=== PATIENT | female | born 1930 | race African-American/Black ===

== ENCOUNTER 2018-08-09 12:10 | Inpatient (IN) | payer MEDICARE, MEDICAID ==
[~2018-08-09] VITALS: Ht 154.9 cm; Wt 73.5 kg
[2018-08-09] MEDS ORDERED: PRAZ1CAP5 GT (12:25)
[2018-08-09] MEDS ORDERED: OMEP20TA15 GT (12:25)
[2018-08-09] MEDS ORDERED: LEVO150T8 GT (12:25)
[2018-08-09] MEDS ORDERED: LORA-249 GT (12:25)
[2018-08-09] MEDS ORDERED: ZOLP5TAB2 GT (12:25)
[2018-08-09] MEDS ORDERED: ONDANSETRON HCL 4MG/2ML INJ IV ONE (14:15)
[2018-08-09] MEDS ORDERED: SODIUM CHLORIDE 0.9% 1000ML BAG (SEPSIS BOLUS) IV ONE (14:15)
[2018-08-09] MEDS ORDERED: FAMOTIDINE 20MG/2ML VIAL IV ONE (14:45)
[2018-08-09 15:04] LABS: HEMATOCRIT. 50.9 % (36.0-48.0); HEMOGLOBIN. 16.3 g/dL (12.0-16.0); MEAN CORPUSCULAR HEMOGLOBIN 26.8 pg (28.0-32.0); MEAN CORPUSCULAR VOLUME 83.5 fL (81.0-99.0); MEAN PLATELET VOLUME 10.2 fl (7.4-10.4); PLATELET 169 x1000/uL (130-400); RED BLOOD CELL COUNT 6.09 mill/uL (4.2-5.4); RED CELL DISTRIBUTION WIDTH 15.5 % (11.6-14.6)
[2018-08-09 15:11] LABS: CHLORIDE 115 mEq/L (98-107); INR 1.1; PROTHROMBIN TIME 10.8 sec (9.1-11.1)
[2018-08-09 15:54] LABS: PLATELET ESTIMATE NORMAL
[2018-08-09] MEDS ORDERED: LEVOFLOXACIN 500MG PREMIX 100 ML IV ONE (18:00)
[2018-08-09 21:20] VITALS: BP 135/79
[2018-08-09 21:45] VITALS: BP 135/79
[2018-08-10 00:51] VITALS: BP 130/69
[2018-08-10 04:00] VITALS: BP 182/101
[2018-08-10] MEDS ORDERED: ONDANSETRON HCL 4MG/2ML INJ IV PRN (07:15)
[2018-08-10] MEDS ORDERED: ACETAMINOPHEN 650MG/20.3ML UDC GT PRN (07:15)
[2018-08-10] MEDS ORDERED: CLONIDINE 0.1MG TABLET PO PRN (07:15)
[2018-08-10] MEDS ORDERED: *ZOSYN XX SCH (07:15)
[2018-08-10 08:00] VITALS: BP 152/99
[2018-08-10] MEDS ORDERED: LORAZEPAM 0.5MG TABLET GT PRN (08:00)
[2018-08-10] MEDS ORDERED: ZOLPIDEM TARTRATE 5MG TABLET GT PRN (08:00)
[2018-08-10] MEDS ORDERED: MEDICATION NOT ON FORMULARY EA (Omeprazole Magnesium (Prilosec Otc) 20 MG) GT SCH (09:00)
[2018-08-10] MEDS: PIPERACILLIN/TAZ 2.25G PREMIX 50 ML IV SCH ×3 (09:16→20:35)
[2018-08-10] MEDS: ENOXAPARIN 40MG/0.4ML SYR SUBCUT SCH (09:17)
[2018-08-10] MEDS: LEVOTHYROXINE SODIUM 150MCG TABLET GT SCH (09:17)
[2018-08-10] MEDS: LANSOPRAZOLE 30MG DR CAPSULE GT SCH (09:18)
[2018-08-10] MEDS ORDERED: DEXT 5%/LACTATED RINGERS 1,000 ML IV NR (11:15)
[2018-08-10] MEDS: CEFTRIAXONE 1 G PREMIX 50 ML IV SCH (11:53)
[2018-08-10 12:00] VITALS: BP 128/94
[2018-08-10] MEDS: DEXTROSE 5% WATER 1,000 ML IV SCH (13:21)
[2018-08-10 14:49] LABS: HEMATOCRIT. 46.2 % (36.0-48.0); HEMOGLOBIN. 14.6 g/dL (12.0-16.0); MEAN CORPUSCULAR HEMOGLOBIN 26.4 pg (28.0-32.0); MEAN CORPUSCULAR VOLUME 83.4 fL (81.0-99.0); PLATELET 162 x1000/uL (130-400); RED BLOOD CELL COUNT 5.54 mill/uL (4.2-5.4); RED CELL DISTRIBUTION WIDTH 15.5 % (11.6-14.6)
[2018-08-10 14:58] LABS: CHLORIDE 119 mEq/L (98-107)
[2018-08-10 15:06] LABS: LDL CHOLESTEROL 63 mg/dL (5-100); PHOSPHORUS 2.1 mg/dL (2.5-4.9)
[2018-08-10 15:09] LABS: HDL CHOLESTEROL 49 mg/dL (40-59)
[2018-08-10 15:11] LABS: CREATINE KINASE 103 IU/L (26-192); CREATINE KINASE MB FRACTION 2.4 ng/mL (0.5-3.6)
[2018-08-10] MEDS ORDERED: POTASSIUM CHLORIDE 20MEQ/PACKET GT NR (15:45)
[2018-08-10] MEDS ORDERED: IOHEXOL-350 100 ML BOTTLE ONE (15:58)
[2018-08-10 16:00] VITALS: BP 156/88
[2018-08-10] MEDS: MULTIVITAMINS,THER W-MINERALS TABLET GT SCH (16:09)
[2018-08-10] MEDS ORDERED: PNEUMOCOCCAL 23-VAL P-SAC VAC 0.5 ML IM ONE (17:00)
[2018-08-10 19:58] LABS: PLATELET ESTIMATE NORMAL
[2018-08-10 20:00] VITALS: BP 156/85
[2018-08-10] MEDS: PRAZOSIN HCL 1MG CAPSULE GT SCH (20:36)
[2018-08-11] VITALS (25 sets, daily range): BP systolic 67–130; BP diastolic 53–89
[2018-08-11] MEDS: PIPERACILLIN/TAZ 2.25G PREMIX 50 ML IV SCH ×3 (05:12→15:00)
[2018-08-11] MEDS: DEXTROSE 5% WATER 1,000 ML IV SCH ×2 (05:15→19:06)
[2018-08-11 07:33] LABS: HEMATOCRIT. 48.4 % (36.0-48.0); HEMOGLOBIN. 15.1 g/dL (12.0-16.0); MEAN CORPUSCULAR HEMOGLOBIN 26.2 pg (28.0-32.0); MEAN CORPUSCULAR VOLUME 83.9 fL (81.0-99.0); MEAN PLATELET VOLUME 11.6 fl (7.4-10.4); PLATELET 179 x1000/uL (130-400); RED BLOOD CELL COUNT 5.77 mill/uL (4.2-5.4); RED CELL DISTRIBUTION WIDTH 15.1 % (11.6-14.6)
[2018-08-11 08:01] LABS: CHLORIDE 114 mEq/L (98-107)
[2018-08-11 08:28] LABS: PHOSPHORUS 1.7 mg/dL (2.5-4.9)
[2018-08-11] MEDS: MULTIVITAMINS,THER W-MINERALS TABLET GT SCH (08:35)
[2018-08-11] MEDS: LEVOTHYROXINE SODIUM 150MCG TABLET GT SCH (08:35)
[2018-08-11] MEDS: LANSOPRAZOLE 30MG DR CAPSULE GT SCH (08:35)
[2018-08-11] MEDS: ENOXAPARIN 40MG/0.4ML SYR SUBCUT SCH (08:35)
[2018-08-11] MEDS: PANTOPRAZOLE 40MG DR TABLET PO SCH (08:35)
[2018-08-11 10:46] LABS: PLATELET ESTIMATE NORMAL
[2018-08-11] MEDS: CEFTRIAXONE 1 G PREMIX 50 ML IV SCH (12:00)
[2018-08-11] MEDS ORDERED: METOPROLOL TARTRATE 5MG/5ML VIAL IV NR (13:15)
[2018-08-11] MEDS ORDERED: METOPROLOL TARTRATE 5MG/5ML VIAL IV ONE (13:30)
[2018-08-11] MEDS ORDERED: METOPROLOL TARTRATE 5MG/5ML VIAL IV SCH (13:30)
[2018-08-11] MEDS ORDERED: SODIUM BICARBONATE 8.4% 1 MEQ/ML 50ML SYR IV NR (13:38)
[2018-08-11] MEDS ORDERED: ESMOLOL 2500MG PREMIX 250 ML IV SCH (14:00)
[2018-08-11] MEDS ORDERED: FENTANYL CITRATE/PF 50MCG/ML 2ML VIAL ONE (14:29)
[2018-08-11] MEDS ORDERED: MIDAZOLAM HCL 2 MG/2 ML VIAL ONE (14:29)
[2018-08-11] MEDS ORDERED: IODIXANOL 320MG/ML 100 ML BOTTLE IV ONE (14:36)
[2018-08-11] MEDS ORDERED: LIDOCAINE HCL 1% 20ML VIAL (Pyxis) INJ ONE (14:36)
[2018-08-11 14:59] LABS: BG CARBOXYHEMOGLOBIN 1.5 % (0.5-1.5); BG DEOXYHEMOGLOBIN 6.2 % (0.0-5.0); BG FRACTION INSPIRED OXYGEN 38; BG METHEMOGLOBIN 0.4 % (0.0-1.5); BG OXYGEN SATURATION 93.7 % (92.0-98.5); BG OXYHEMOGLOBIN 91.9 % (94.0-97.0); BG PCO2 35.8 mmHg (35.0-45.0); BG PH 7.496 (7.350-7.450); BG PO2 63.4 mmHg (75.0-100.0); BG SAMPLE SITE A-LINE; BG TOTAL HEMOGLOBIN 15.9 g/dL (12.0-18.0); BG VENT MODE NASAL CANNULA
[2018-08-11] MEDS ORDERED: IOHEXOL-300 100 ML BOTTLE ONE (15:17)
[2018-08-11] MEDS ORDERED: PROTAMINE SULFATE 10MG/ML VIAL 5ML IV ONE (15:46)
[2018-08-11] MEDS: ESMOLOL 2500MG PREMIX 250 ML IV SCH (18:45)
[2018-08-11] MEDS: PRAZOSIN HCL 1MG CAPSULE GT SCH (21:00)
[2018-08-12] VITALS (57 sets, daily range): BP systolic 50–169; BP diastolic 13–106
[2018-08-12] MEDS: PIPERACILLIN/TAZ 2.25G PREMIX 50 ML IV SCH ×3 (00:07→09:00)
[2018-08-12] MEDS: ESMOLOL 2500MG PREMIX 250 ML IV SCH ×2 (02:15→13:51)
[2018-08-12] MEDS ORDERED: SODIUM CHLORIDE 0.9% 500 ML IV ONE (04:15)
[2018-08-12] MEDS ORDERED: NOREPINEPHRINE 16 MG in DEXT 5% WATER 484 ML IV PRN (04:30)
[2018-08-12 04:44] LABS: BG BASE EXCESS -13.5 mmol/L (-2.0-2.0); BG DEOXYHEMOGLOBIN 18.3 % (0.0-5.0); BG FRACTION INSPIRED OXYGEN 100; BG HCO3 ACT 15.7 mmol/L (22.0-26.0); BG METHEMOGLOBIN 0.3 % (0.0-1.5); BG OXYGEN SATURATION 81.5 % (92.0-98.5); BG OXYHEMOGLOBIN 80.4 % (94.0-97.0); BG PCO2 48.5 mmHg (35.0-45.0); BG PH 7.127 (7.350-7.450); BG PO2 58.7 mmHg (75.0-100.0); BG SAMPLE SITE RIGHT BRACHIAL; BG TOTAL HEMOGLOBIN 15.4 g/dL (12.0-18.0); BG VENT MODE MASK - NRB
[2018-08-12] MEDS: DEXTROSE 5% WATER 1,000 ML IV SCH ×2 (04:48→05:48)
[2018-08-12 05:39] LABS: HEMATOCRIT. 45.5 % (36.0-48.0); HEMOGLOBIN. 14.1 g/dL (12.0-16.0); MEAN CORPUSCULAR HEMOGLOBIN 26.4 pg (28.0-32.0); MEAN CORPUSCULAR VOLUME 85.3 fL (81.0-99.0); PLATELET 144 x1000/uL (130-400); RED BLOOD CELL COUNT 5.34 mill/uL (4.2-5.4); RED CELL DISTRIBUTION WIDTH 15.5 % (11.6-14.6)
[2018-08-12] MEDS ORDERED: SODIUM BICARBONATE 8.4% 1 MEQ/ML 50ML SYR IV NR (06:12)
[2018-08-12] MEDS: PANTOPRAZOLE 40MG DR TABLET PO SCH (07:50)
[2018-08-12] MEDS: LEVOTHYROXINE SODIUM 150MCG TABLET GT SCH (07:50)
[2018-08-12] MEDS: LANSOPRAZOLE 30MG DR CAPSULE GT SCH (07:50)
[2018-08-12 08:00] LABS: NUCLEATED RED BLOOD CELLS 2 /100 WBC
[2018-08-12 08:01] LABS: PLATELET ESTIMATE NORMAL
[2018-08-12] MEDS: MULTIVITAMINS,THER W-MINERALS TABLET GT SCH (09:00)
[2018-08-12] MEDS: ENOXAPARIN 40MG/0.4ML SYR SUBCUT SCH (09:00)
[2018-08-12] MEDS ORDERED: MORPHINE SULFATE 250 MG in DEXT 5% WATER 240 ML IV PRN (10:00)
[2018-08-12] MEDS ORDERED: PIPERACILLIN/TAZ 2.25G PREMIX 50 ML IV SCH (12:00)
[2018-08-12] MEDS: CEFTRIAXONE 1 G PREMIX 50 ML IV SCH (12:00)
[2018-08-13] MEDS ORDERED: ENOXAPARIN 30MG/0.3ML SYR SUBCUT SCH (09:00)
== END 2018-08-12 15:03 | disposition expired | DRG 388 ==
LOC: ER 12:10 → EDBEDREQTM 14:32 → EDBEDREQ 14:32 → EDBEDREQSVC 14:32 → 7WST 18:01 → EDBEDREQTM 18:05 → EDBEDREQ 18:05 → ENRESERV 18:11 → 7WST 23:44 → CVICU 08-11 17:00
PROVIDERS: ADMIT Internal Medicine; ATTEND Internal Medicine
PROC: B4101ZZ Fluoroscopy of Abdominal Aorta using Low Osmolar Contrast (ICD-10-PCS; principal; 2018-08-11)
DX: K56.7 Ileus, unspecified (principal); K55.059 Acute (reversible) ischemia of intestine, part and extent unspecified; K55.069 Acute infarction of intestine, part and extent unspecified; E87.0 Hyperosmolality and hypernatremia; E46 Unspecified protein-calorie malnutrition; E87.1 Hypo-osmolality and hyponatremia; I77.4 Celiac artery compression syndrome; I74.5 Embolism and thrombosis of iliac artery; E87.2 Acidosis; N17.9 Acute kidney failure, unspecified; N39.0 Urinary tract infection, site not specified; E44.0 Moderate protein-calorie malnutrition; R13.10 Dysphagia, unspecified; E88.09 Other disorders of plasma-protein metabolism, not elsewhere classified; I49.3 Ventricular premature depolarization; I72.3 Aneurysm of iliac artery; E86.9 Volume depletion, unspecified; E87.6 Hypokalemia; I70.0 Atherosclerosis of aorta; E86.0 Dehydration; I11.9 Hypertensive heart disease without heart failure; N28.1 Cyst of kidney, acquired; E03.9 Hypothyroidism, unspecified; F03.90 Unspecified dementia, unspecified severity, without behavioral disturbance, psychotic disturbance, mood disturbance, and anxiety; F20.9 Schizophrenia, unspecified; I25.10 Atherosclerotic heart disease of native coronary artery without angina pectoris; K21.9 Gastro-esophageal reflux disease without esophagitis; Z66 Do not resuscitate; Z51.5 Encounter for palliative care; I25.2 Old myocardial infarction; Z86.73 Personal history of transient ischemic attack (TIA), and cerebral infarction without residual deficits; Z93.1 Gastrostomy status; Z68.30 Body mass index [BMI] 30.0-30.9, adult
CPT/HCPCS: 36200; 36415; 36600; 71045; 74174; 74176; 75630; 80048; 80061; 82375; 82550; 82553; 82805; 82962; 83036; 83605; 83735; 83880; 84100; 84145; 84439; 84443; 84481; 84484; 90732; 93005; 93306; 93970; 96365; 96375; 99285; A4657; A6261; C1769; C1893; C1894; J0696; J1644; J1650; J1956; J2250; J2405; J2543; J2720; J3010; J3490; J7030; J7040; J7050; J7070; J7121; Q9967; A4315